=== PATIENT | male | born 1990 | race Caucasian/White ===

== ENCOUNTER 2019-03-31 11:04 | Emergency (ER) | payer OTHER ==
[~2019-03-31] VITALS: Ht 175.3 cm; Wt 68.5 kg
[2019-03-31] MEDS ORDERED: PENICILLIN V P500 MG PO (12:41)
== END 2019-03-31 12:49 | disposition home or self-care (01) ==
LOC: ED 11:04
DX: S02.602B Fracture of unspecified part of body of left mandible, initial encounter for open fracture (principal); Y04.8XXA Assault by other bodily force, initial encounter; Z88.5 Allergy status to narcotic agent
CPT/HCPCS: 70486; 99284-25

== ENCOUNTER 2024-03-22 10:59 | Emergency (ER) | payer OTHER ==
[~2024-03-22] VITALS: Ht 175.3 cm; Wt 76.6 kg
[~2024-03-22 10:59] MED LIST: ACETAMINOPHEN500 MG PO; BUPROPION XL450 MG PO; DOXYCYCLINE HY100 MG PO; IBUPROFEN600 MG PO; OMEPRAZOLE20 MG PO; PENICILLIN V P500 MG PO
[2024-03-22] MEDS ORDERED: SUBOXONE 8 MG-1 EAC1 SL (11:18)
[2024-03-22] MEDS ORDERED: SENNA LAX8.6 MG PO (11:19)
[2024-03-22] MEDS ORDERED: CYMBALTA30 MG PO (11:20)
[2024-03-22] MEDS ORDERED: REMERON15 MG PO (11:20)
[2024-03-22] MEDS ORDERED: DIPHTH,PERTUSS(ACELL),TET VAC 0.5 ML SYRINGE IM ONE (11:45)
[2024-03-22] MEDS ORDERED: ACETAMINOPHEN 500 MG TAB PO ONE (13:15)
[2024-03-22] MEDS ORDERED: ONDANSETRON 4 MG TAB ODT SL ONE (13:15)
[2024-03-22 13:50] VITALS: BP 121/81
== END 2024-03-22 13:50 | disposition other institution, planned readmission (95) ==
LOC: ED 10:59
DX: S00.31XA Abrasion of nose, initial encounter (principal); S00.212A Abrasion of left eyelid and periocular area, initial encounter; Y09 Assault by unspecified means; F17.200 Nicotine dependence, unspecified, uncomplicated; Z88.5 Allergy status to narcotic agent; Z79.899 Other long term (current) drug therapy
CPT/HCPCS: 70450; 72125; 73560; 90471; 90715; 99284-25; A9270

== ENCOUNTER 2025-01-31 11:18 | Emergency (ER) | payer OTHER ==
[~2025-01-31] VITALS: Ht 175.3 cm; Wt 74.0 kg
[~2025-01-31 11:18] MED LIST changes: +CYMBALTA30 MG PO; +REMERON15 MG PO; +SENNA LAX8.6 MG PO; +SUBOXONE 8 MG-1 EAC1 SL
[2025-01-31] MEDS ORDERED: LIDOCAINE 2% VISCOUS 6 ML SYR TOP ONE (11:30)
[2025-01-31 11:35] LABS: BLOOD/HGB, URINE NEGATIVE (Negative); KETONE, URINE NEGATIVE (Negative); LEUK ESTERASE, URINE NEGATIVE (negative); NITRITE, URINE NEGATIVE (negative)
[2025-01-31 11:48] LABS: BACTERIA, URINE NONE SEEN /hpf (negative); CASTS, URINE NONE SEEN \\lpf; CRYSTALS, URINE NONE SEEN (0-1+); EPITHELIAL CELLS, URINE 0 /lpf (0-1+); REFLEX CULTURE, URINE No (No)
[2025-01-31] MEDS ORDERED: FLOMAX0.4 MG PO (12:02)
[2025-01-31 12:32] VITALS: BP 146/92
== END 2025-01-31 12:33 | disposition home or self-care (01) ==
LOC: ED 11:18
PROVIDERS: Emergency Medicine
DX: R33.9 Retention of urine, unspecified (principal); F17.200 Nicotine dependence, unspecified, uncomplicated; Z79.899 Other long term (current) drug therapy; Z88.5 Allergy status to narcotic agent
CPT/HCPCS: 51702; 51798; 81001; 99283-25; A4311